=== PATIENT | female | born 1985 | race American Indian/Alaskan Native ===

== ENCOUNTER 2016-04-26 16:28 | Outpatient (CLI) | payer MEDICAID ==
[2016-04-26 16:46] VITALS: BP 117/71
--- NOTE | 2016-04-27 10:27 | Ultrasound Report ---
BIOPHYSICAL PROFILE: Technique: Transabdominal ultrasound with Doppler interrogation. 2 - breathing movements 2 - movements 2 - posture and tone 2 - Qualitative amniotic fluid volume 8 - TOTAL SCORE OF POSSIBLE 8 Heart Rate (bpm) 137
== END 2016-04-26 19:43 | disposition home or self-care (01) ==
LOC: TRG 16:28
PROVIDERS: ATTEND Obstetrics & Gynecology
DX: O47.1 False labor at or after 37 completed weeks of gestation (principal); Z3A.38 38 weeks gestation of pregnancy
CPT/HCPCS: 76819

== ENCOUNTER 2016-04-27 11:29 | Inpatient (IN) | payer MEDICAID ==
[2016-04-27] MEDS ORDERED: LACTATED RINGERS 1,000 ML ONE (12:14)
[2016-04-27] MEDS ORDERED: MINERAL OIL ONE (12:18)
[2016-04-27] MEDS ORDERED: BRETHINE SUB-Q PRN (12:47)
[2016-04-27] MEDS ORDERED: ePHEDrine SULFATE IV PRN (12:47)
[2016-04-27] MEDS ORDERED: NARCAN 0.4 MG/1 ML IV PRN (12:47)
[2016-04-27] MEDS ORDERED: BRETHINE IVP PRN (12:47)
[2016-04-27] MEDS ORDERED: POLYCILLIN/NS 2 GM/100 ML 2 GM/100 ML BAG IV ONE (12:47)
[2016-04-27] MEDS ORDERED: SUBLIMAZE IV PRN (12:47)
[2016-04-27] MEDS ORDERED: MINERAL OIL PO PRN (12:47)
[2016-04-27] MEDS ORDERED: XYLOCAINE 2% INFILTRATI ONE (12:47)
[2016-04-27] MEDS ORDERED: LACTATED RINGERS 1,000 ML IV SCH (13:00)
[2016-04-27] MEDS ORDERED: PITOCin/NS 20 UNIT/1000ML DRIP 20 UNITS/1,000 ML BAG IV SCH (13:00)
[2016-04-27] MEDS ORDERED: BENADRYL PO PRN (13:23)
[2016-04-27] MEDS ORDERED: DULCOLAX PR PRN (13:23)
[2016-04-27] MEDS ORDERED: TUCKS PAD TP PRN (13:23)
[2016-04-27] MEDS ORDERED: PHENERGAN PR PRN (13:23)
[2016-04-27] MEDS ORDERED: NORCO 5/325 PO PRN (13:23)
[2016-04-27] MEDS ORDERED: LANSINOH TP PRN (13:23)
[2016-04-27] MEDS ORDERED: MILK OF MAGNESIA PO PRN (13:23)
[2016-04-27] MEDS ORDERED: TYLENOL PO PRN (13:23)
[2016-04-27] MEDS ORDERED: DERMOPLAST TP PRN (13:23)
--- NOTE | 2016-04-27 13:39 | Procedure Note ---
OB Delivery Note - Delivery Date of Delivery: 04/27/16 Surgeon: MARCELLO BECKFORD Cascade Operator: AMY THORNE Estimated blood loss: <100cc - Vaginal Delivery presentation: vertex Delivery position: OA Intrapartum events: none Delivery induction: none Delivery monitor: external FHT, external uterine Route of delivery: Delivery placenta: spontaneous Delivery cord: 3 umbilical vessels Episiotomy: none Delivery laceration: none Anesthesia: none Delivery comments: of a live 6'14" female infant over a intact perineum under IV pain control with Apgars of 9 and 10 at 1304 on 04/27/2016. Infant directly to paternal chest, skin to skin. Spontaneous delivery of placenta complete and intact with [place] side presenting at 1304. Fundus is firm and midline located 4 below the U. Lochia is scant. Delayed cord clamping and cutting; Cord cut by patient. Cord blood collected. GBS Prophylaxis x 1. - A at 1 minute: 9 at 5 minutes: 10 Infant Gender: Female (6'14)
[2016-04-27] MEDS ORDERED: MOTRIN PO SCH (14:00)
[2016-04-27] MEDS ORDERED: SODIUM CHLORIDE FLUSH SYRINGE 10 ML IV NR (14:00)
--- NOTE | 2016-04-27 14:04 | History and Physical Report ---
History of Present Illness Date of examination: 04/27/16 Date of admission: 04/27/16 11:47 Chief complaint: Regular painful contractions History of present illness: 30 YO at 38.4 with early PNC at [facility]. 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 Past History Past Medical History: other (Bronchitis) Past Surgical History: other (Ovarian cystectomy) [employer]ATOR History: abnormal PAP smear, herpes, other (Ovarian cyst) - Obstetrical History Expected Date of Delivery: 05/07/16 Actual Gestation: 38 Week(s) 4 Day(s) : 7 Para: 1 Hx # Term Pregnancies: 1 Number of Pregnancies: 0 Spontaneous Abortions: 1 Induced : 4 Number of Living Children: 1 Medications and Allergies Allergies Allergy/AdvReac Type Severity Reaction Status Date / Time Latex, Natural Rubber Allergy Intermediate Itching Verified 04/26/16 16:36 Home Medications Medication Instructions Recorded Confirmed Last Taken Type HYDROcodone/APAP 5-325 [[place] 1 each PO Q6HR PRN #14 tablet 12/27/13 Unknown Rx 5/325] Sulfacetamide Sodium [Bleph-10] 5 ml OP Q3H #1 bottle 12/27/13 Unknown Rx Active Meds: Active Medications Acetaminophen (Tylenol) 650 mg PO Q4H PRN PRN Reason: Pain MILD(1-3)/Fever >100.5/[place] Acetaminophen/Hydrocodone Bitart ([place] 5/325) 2 each PO Q6H PRN PRN Reason: Pain, Moderate (4-6) Benzocaine/Menthol (Dermoplast) 1 spray TP PRN PRN PRN Reason: Episiotomy Pain Bisacodyl (Dulcolax) 10 mg SD BID PRN PRN Reason: Constipation Diphenhydramine HCl (Benadryl) 25 mg PO Q6H PRN PRN Reason: Itching Fentanyl (Sublimaze) 100 mcg IV Q2H PRN PRN Reason: Labor Pain Last Admin: 04/27/16 12:52 Dose: 100 mcg Ampicillin Sodium (Polycillin/Ns 1 Gm/50 Ml) 1 gm in 50 mls @ 100 mls/hr IV Q4HR THAD PRN Reason: Protocol Lactated Ringer's (Lactated Ringers) 1,000 mls @ 125 mls/hr IV DIRECT THAD Oxytocin/Sodium Chloride (Pitocin/Ns 20 Unit/1000ml Drip) 20 units in 1,000 mls @ 125 mls/hr IV DIRECT THAD Ibuprofen (Motrin) 600 mg PO Q6H THAD Magnesium Hydroxide (Milk Of Magnesia) 30 ml PO HS PRN PRN Reason: Constipation Mineral Oil (Mineral Oil) 30 ml PO QHS PRN PRN Reason: Constipation Multi-Ingredient Ointment (Lansinoh) 1 applic TP PRN PRN PRN Reason: Sore Nipples Naloxone HCl (Narcan 0.4 Mg/1 Ml) 0.1 mg IV Q2MIN PRN PRN Reason: Res Rate </= 8 or 02 SAT < 92% Promethazine HCl (Phenergan) 25 mg SD Q6H PRN PRN Reason: Nausea And Vomiting Sodium Chloride (Sodium Chloride Flush Syringe 10 Ml) 10 ml IV PRN NR Stop: 04/28/16 13:59 [place]/Glycerin (Tucks Pad) 1 each TP PRN PRN PRN Reason: Hemorrhoid/cleansing/soothing Review of Systems All systems: negative Gastrointestinal: other Genitourinary: contractions - Vital Signs Vital signs: Vital Signs Pulse Pulse Ox 107 H 100 04/27/16 12:04 04/27/16 12:04 Temp Pulse Resp BP Pulse Ox 95 H 18 140/86 100 04/27/16 13:58 04/27/16 12:52 04/27/16 13:58 04/27/16 12:54 - Physical Exam Breasts: Positive: deferred Cardiovascular: Regular rate Lungs: Positive: Normal air movement Abdomen: Positive: soft, normal bowel sounds, other () Genitourinary (Female): Positive: normal external genitalia Vulva: both: normal Vagina: Positive: normal moisture Uterus: Positive: enlarged, normal contour Anus/Rectum: Positive: normal perianal skin Extremities: Positive: normal Deep Tendon Reflex Grade: Normal +2 - Obstetrical FHR: auscultation normal, category 1 Uterine Contraction Monitor Mode: External Cervical Dilatation: 8 (upon admission) Cervical Effacement Percentage: 90 station: -1 Uterine Contraction Frequency (min): q2-4 minutes Uterine Contraction Pattern: Regular Uterine Tone Measurement Phase: Resting Uterine Contraction Intensity: Strong/Firm Results All other labs normal. Assessment and Plan A: IUP 38.4 with intense painful contractions SVE 8/90/-1 intact BOW Category 1 tracing Uncomfortable with contractions GBS negative +HSV2 without s/s of outbreak P: Admit with routine labor management Continuos monitoring IV pain medication/epidural as desired by patient Expect
[2016-04-27 16:35] LABS: Hematocrit 36.9 % (30.3-42.9); Hemoglobin 11.6 gm/dl (10.1-14.3); Mean Corpuscular HGB Conc 32 % (30-34); Mean Corpuscular Hemoglobin 28 pg (28-32); Mean Corpuscular Volume 88 fl (79-97); Platelet Count 240 K/mm3 (140-440); White Blood Count 13.3 K/mm3 (4.5-11.0)
[2016-04-27 16:36] LABS: Red Cell Distribution Width 20.1 % (13.2-15.2)
[2016-04-27] MEDS ORDERED: POLYCILLIN/NS 1 GM/50 ML 1 GM/50 ML BAG IV SCH (16:49)
[2016-04-28] MEDS: MOTRIN PO SCH ×3 (05:41→18:06)
[2016-04-28] MEDS ORDERED: BOOSTRIX IM ONE (06:05)
--- NOTE | 2016-04-28 08:39 | Progress Note ---
Assessment and Plan A: PP day #1 - stable P: Discharge instructions given Discharge home in am Subjective - Subjective Date of service: 04/28/16 Principal diagnosis: Patient reports: appetite normal : doing well Objective - Vital Signs Latest vital signs: Vital Signs Temp Pulse Pulse Resp BP BP Pulse Ox 04/28/16 01:32 98.3 F 91 H 18 106/61 04/27/16 20:00 98.2 F 81 20 129/77 04/27/16 16:20 98.7 F 108 H 20 143/78 04/27/16 14:13 105 H 128/87 04/27/16 13:58 95 H 140/86 04/27/16 13:43 103 H 141/84 04/27/16 13:29 92 H 137/87 04/27/16 12:54 131 H 100 04/27/16 12:52 18 04/27/16 12:49 114 H 100 04/27/16 12:44 94 H 99 04/27/16 12:39 122 H 100 04/27/16 12:34 95 H 100 04/27/16 12:29 115 H 100 04/27/16 12:24 97 H 99 04/27/16 12:19 115 H 100 04/27/16 12:14 99 H 99 04/27/16 12:09 103 H 100 04/27/16 12:04 107 H 100 Intake and Output 04/27/16 04/28/16 04/28/16 22:59 06:59 14:59 Intake Total 480 240 Output Total 200 600 Balance 280 -360 Intake: Oral 240 Intake, Free Water 240 240 Output: Urine 200 600 Void 200 600 Other: Total, Intake Amount 120 Total, Output Amount 200 600 # Voids Void 2 - Exam Breasts: Present: deferred Cardiovascular: Present: Regular rate Lungs: Present: Clear to auscultation Abdomen: Present: soft Vulva: both: normal Uterus: Present: fundal height at umbilicus Extremities: Present: normal Deep Tendon Reflex Grade: Normal +2 - Labs Labs: Abnormal lab results 04/27/16 Range/Units 16:01 WBC 13.3 H (4.5-11.0) K/mm3 RDW 20.1 H (13.2-15.2) %
--- NOTE | 2016-04-28 08:42 | Discharge Summary ---
Providers - Providers Date of Admission: 04/27/16 11:47 Date of discharge: 04/29/16 Attending physician: GYPSY VAUGHAN MD Primary care physician: GYPSY VAUGHAN MD Hospitalization Reason for admission: active labor Delivery: Episiotomy: none Laceration: none Other procedures: none complications: none Discharge diagnosis: IUP at term delivered [place] baby: female Hospital course: Uneventful hospital course Condition at discharge: Good Disposition: DISCHARGED TO HOME OR SELFCARE Plan - Provider Discharge Summary Activity: routine, no sex for 6 weeks, no strenuous exercise Diet: routine Instructions: routine Additional instructions: [] Smoking cessation referral if applicable(refer to patient education folder for contact #) [] Refer to [facility] Booklet Call your doctor immediately for: * Fever > 100.5 * Heavy vaginal bleeding ( >1 pad per hour) * Severe persistent headache * Shortness of breath * Reddened, hot, painful area to leg or breast * Drainage or odor from incision. * Keep incision clean and dry at all times and follow doctor's instructions regarding bathing/showering - Follow up plan Follow up: [facility] [Provider Group] - 6 Weeks
[2016-04-29] MEDS: MOTRIN PO SCH ×2 (00:29→11:48)
[2016-04-29 19:15] VITALS: BP 121/69
== END 2016-04-29 17:20 | disposition home or self-care (01) | DRG 775 ==
LOC: TRG 11:29 → UNDOADMIN 11:41 → LD 11:41 → OB 17:02
PROVIDERS: ADMIT Obstetrics & Gynecology; ATTEND Obstetrics & Gynecology
PROC: 10E0XZZ Delivery of Products of Conception, External Approach (ICD-10-PCS; principal; 2016-04-27)
DX: O99.013 Anemia complicating pregnancy, third trimester (principal); Z3A.38 38 weeks gestation of pregnancy; Z37.0 Single live birth; Z90.6 Acquired absence of other parts of urinary tract; Z22.4 Carrier of infections with a predominantly sexual mode of transmission
CPT/HCPCS: 36415; 85014; 85018; 85027; 86850; 86900; 86901; 90471; 90715; 99211; A6250; G0463; J0290; J2590; J3010; J7120

== ENCOUNTER 2018-08-06 08:34 | Emergency (ER) | payer MEDICAID, OTHER ==
[2018-08-06] MEDS ORDERED: ULTRAM PO ONE (09:47)
[2018-08-06] MEDS ORDERED: IBUPROFEN PO ONE (09:47)
--- NOTE | 2018-08-06 11:16 | XRay Report ---
AP PELVIS: HISTORY: pain. AP view of the pelvis shows normal pelvic contour and soft tissues. The hips are symmetric and within normal limits as are the sacroiliac joints. IMPRESSION: Normal pelvis.
--- NOTE | 2018-08-06 11:16 | XRay Report ---
CERVICAL SPINE, 3 views: History: Neck pain. Findings: The vertebral bodies, disk spaces, posterior elements and prevertebral soft tissues are unremarkable. The dens is intact. No acute fracture or malalignment is identified. Mild degenerative disc narrowing is noted at C5-6. Impression: Mild degenerative disc disease at C5-6. No evidence for acute injury to the cervical spine.
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
[2018-08-06 12:40] VITALS: BP 105/68
== END 2018-08-06 12:38 | disposition home or self-care (01) ==
LOC: ED 08:34
DX: S16.1XXA Strain of muscle, fascia and tendon at neck level, initial encounter (principal); S70.01XA Contusion of right hip, initial encounter; V49.59XA Passenger injured in collision with other motor vehicles in traffic accident, initial encounter; Y93.89 Activity, other specified; Y92.89 Other specified places as the place of occurrence of the external cause; Y99.8 Other external cause status
CPT/HCPCS: 72040; 72170

== ENCOUNTER 2021-07-10 07:38 | Emergency (ER) | payer MEDICAID ==
[2021-07-10 08:40] VITALS: BP 117/74
== END 2021-07-10 08:41 | disposition left against medical advice (07) ==
LOC: ED 07:38
DX: G43.909 Migraine, unspecified, not intractable, without status migrainosus (principal); Z53.21 Procedure and treatment not carried out due to patient leaving prior to being seen by health care provider